=== PATIENT | male | born 1935 | race Caucasian/White ===

== ENCOUNTER 2019-04-06 15:13 | Inpatient (IN) | payer OTHER ==
[~2019-04-06] VITALS: Ht 177.8 cm; Wt 104.6 kg
[~2019-04-06 15:13] MED LIST: AMLO5 PO; AMOX500 PO; ASPI81CH PO; ASPI81EC PO; AVODART; Aspir 8181 MG PO; BLOOD PRESSURE MED; BUDE32NIS; CLAR500 PO; DIAZ5 PO; DOXA4; Daily Multiple1 EACH PO; FIBER LAX625 MG PO; FINA5 PO; Flovent 110 MCG12 GM; HEART BURN MED; HYDR1TAB94 PO; LORA.5 PO; LORA1 PO; LOSHYD PO; MECL25 PO; METF500 PO; MOMENI; NYSTRIT TOP; NYSTRITC TOP; OMEP20ER PO; ONDA4ODT MM; RXOXYACE PO; SENN187 PO
--- NOTE | 2019-04-08 07:07 | NUR ---
Ambulatory in Day Surgery History, Chart, Medications and Allergies reviewed before start of procedure.Patient confirms NPO status and agrees with scheduled surgery. Lungs clear T/O to Auscultation.
--- NOTE | 2019-04-08 13:55 | NUR ---
[id number] NAUSEA PATIENT WITH HISTORY OF VERTIGO WHICH CAUSES NAUSEA. ZOFRAN GIVEN PER REQUEST
--- NOTE | 2019-04-08 17:42 | NUR ---
PATIENT SITTING IN CHAIR, REPORTS CURRENT PAIN LEVEL 2-3 WHICH IS ACCEPTABLE LEVEL. DRESSING CLEAN, DRY AND INTACT. PATIENT DENIES NAUSEA. PATIENT VOIDED POST OP
[2019-04-09 05:06] LABS: BASOPHILS ABSOLUTE AUTO 0.03 K/mm3 (0.00-0.23); BASOPHILS PERCENT AUTO 0 % (0-2); EOSINOPHILS ABSOLUTE AUTO 0.04 K/mm3 (0.00-0.68); EOSINOPHILS PERCENT AUTO 0 % (0-6); Hematocrit 36.6 % (37.0-53.0); Hemoglobin 12.2 g/dL (13.5-17.5); IMMATURE GRAN ABSOLUTE AUTO 0.05 K/mm3 (0.00-0.10); IMMATURE GRAN PERCENT AUTO 0 % (0-1); LYMPHOCYTES ABSOLUTE AUTO 2.34 K/mm3 (0.84-5.20); LYMPHOCYTES PERCENT AUTO 16 % (21-46); MONOCYTES ABSOLUTE AUTO 1.59 K/mm3 (0.16-1.47); MONOCYTES PERCENT AUTO 11 % (4-13); Mean Corpuscular HGB 31.3 pg (26.0-34.0); Mean Corpuscular HGB Conc 33.3 g/dL (31.5-36.5); Mean Corpuscular Volume 94 fL (80-100); Mean Platelet Volume 9.5 fL (9.1-12.4); NEUTROPHILS ABSOLUTE AUTO 10.39 K/mm3 (1.96-9.15); NEUTROPHILS PERCENT AUTO 72 % (41-73); Platelet Count 262 K/mm3 (150-400); RDW Coefficient Variation 14.3 % (11.7-14.2); RDW Standard Deviation 48.7 fL (35.1-46.3); White Blood Cell Count 14.44 K/mm3 (4.00-11.30)
[2019-04-09 05:30] LABS: Magnesium, Blood 2.1 mg/dL (1.6-2.4)
[2019-04-09 05:31] LABS: Anion Gap 7 mmol/L (6-16); Blood Urea Nitrogen 10 mg/dL (8-24); Bun/Creatinine Ratio 13.2 (12.0-20.0); CO2, Blood 30 mmol/L (21-32); Calcium, Blood 8.4 mg/dL (8.5-10.1); Chloride, Blood 104 mmol/L (98-108); Creatinine, Blood 0.76 mg/dL (0.60-1.20); Glomerular Filtration Rate >60 (60-); Glucose, Blood 102 mg/dL (70-99); Potassium, Blood 3.9 mmol/L (3.5-5.5); Sodium, Blood 141 mmol/L (136-145)
--- NOTE | 2019-04-09 05:58 | NUR ---
SUMMARY POD #1 LEFT TKA PT HAS DONE WELL THROUGH THE NIGHT. PAIN MANAGED WITH TYLENOL & TORADOL. VSS. DRSG REMAINS C/D/I. PT IS TOLERATING PO INTAKE. VOIDING WNL. PT HAS AMBULATED IN HALLS X2, 1 ASSIST USING FWW/GAIT BELT, GAIT IS STEADY, NO VERTIGO NOTED. [employer] PACK IN PLACE. CALL LIGHT IN REACH. TM
[2019-04-09] MEDS ORDERED: ACET500 PO (13:33)
[2019-04-09] MEDS ORDERED: ROXICODONE5 MG PO (13:33)
--- NOTE | 2019-04-09 13:50 | NUR ---
DISCHARGE: PT RECENTLY DISCHARGED. PT REPORTS UNDERSTANDING OF DISCHARGE INFORMATION. PT REPORTS HAVING APPR EQUIP AT HOME. PT BEEN EATING AND DRINKING, VOIDING AND PASSING GAS. PT BEEN SEEN BY DR STAUFFER TODAY. PT CLEARED BY THERAPY TO GO HOME. PT REPORTS PAIN TOLERABLE ON PO PAIN MEDICATION. PT REPORTS UNDERSTANDING OF ICE MACHINE. SENT WITH ICE MACHINE, DRESSING SUPPLIES, SCRIPT.
--- NOTE | 2019-04-11 09:04 | NUR ---
04/11/19 0904 Bell Keith VERIFICATIONS: EDIT CHART.
== END 2019-04-09 13:48 | disposition home or self-care (01) | DRG 470 ==
LOC: SURS 04-08 06:54 → PRE IP 04-08 08:30 → SURS 04-08 12:20
PROVIDERS: ADMIT Orthopaedic Surgery
PROC: 0SRB0JA Replacement of Left Hip Joint with Synthetic Substitute, Uncemented, Open Approach (ICD-10-PCS; principal; 2019-04-08 08:30)
DX: M16.12 Unilateral primary osteoarthritis, left hip (principal); I10 Essential (primary) hypertension; E11.9 Type 2 diabetes mellitus without complications; G47.33 Obstructive sleep apnea (adult) (pediatric)
CPT/HCPCS: 36415; 72170; 80048; 82947; 83735; 85025; 88305; 88311; 97110; 97116; 97162; 97530; C1776; J0171; J0690; J0735; J1100; J1885; J2405; J2704; J2795; J3010; J7120

== ENCOUNTER 2021-08-17 21:28 | Emergency (ER) | payer OTHER ==
[~2021-08-17] VITALS: Ht 177.8 cm; Wt 99.8 kg
[~2021-08-17 21:28] MED LIST changes: +ACET500 PO; +ROXICODONE5 MG PO
== END 2021-08-17 23:21 | disposition home or self-care (01) ==
LOC: ER 21:28
DX: I10 Essential (primary) hypertension (principal); E11.9 Type 2 diabetes mellitus without complications; K21.9 Gastro-esophageal reflux disease without esophagitis; Z87.891 Personal history of nicotine dependence; Z79.84 Long term (current) use of oral hypoglycemic drugs; Z88.8 Allergy status to other drugs, medicaments and biological substances; Z79.899 Other long term (current) drug therapy; Z79.82 Long term (current) use of aspirin
CPT/HCPCS: 99283

== ENCOUNTER → 2021-08-20 | Outpatient (CLI) | payer OTHER ==
[2021-08-20 13:44] LABS: BASOPHILS ABSOLUTE AUTO 0.05 K/mm3 (0.00-0.23); BASOPHILS PERCENT AUTO 1 % (0-2); EOSINOPHILS ABSOLUTE AUTO 0.36 K/mm3 (0.00-0.68); EOSINOPHILS PERCENT AUTO 4 % (0-6); Hematocrit 43.4 % (37.0-53.0); Hemoglobin 14.6 g/dL (13.5-17.5); IMMATURE GRAN ABSOLUTE AUTO 0.02 K/mm3 (0.00-0.10); IMMATURE GRAN PERCENT AUTO 0 % (0-1); LYMPHOCYTES ABSOLUTE AUTO 2.57 K/mm3 (0.84-5.20); LYMPHOCYTES PERCENT AUTO 29 % (21-46); MONOCYTES ABSOLUTE AUTO 0.92 K/mm3 (0.16-1.47); MONOCYTES PERCENT AUTO 10 % (4-13); Mean Corpuscular HGB 31.4 pg (26.0-34.0); Mean Corpuscular HGB Conc 33.6 g/dL (31.5-36.5); Mean Corpuscular Volume 93 fL (80-100); Mean Platelet Volume 9.3 fL (9.1-12.4); NEUTROPHILS ABSOLUTE AUTO 5.01 K/mm3 (1.96-9.15); NEUTROPHILS PERCENT AUTO 56 % (41-73); Platelet Count 318 K/mm3 (150-400); RDW Coefficient Variation 14.4 % (11.7-14.2); RDW Standard Deviation 49.3 fL (35.1-46.3); Red Blood Cell Count 4.65 M/mm3 (4.30-5.90); White Blood Cell Count 8.93 K/mm3 (4.00-11.30)
[2021-08-20 14:07] LABS: Alanine Aminotransfer (ALT/SGP 30 U/L (12-78); Albumin, Blood 3.5 g/dL (3.4-5.0); Albumin/Globulin Ratio 1.1 (0.8-1.8); Alk Phos 90 U/L (40-126); Anion Gap 11 mmol/L (6-16); Aspartate Aminotrans (AST/SGOT 24 U/L (12-37); Bilirubin, Total 0.5 mg/dL (0.1-1.0); Blood Urea Nitrogen 10 mg/dL (8-24); Bun/Creatinine Ratio 15.9 (12.0-20.0); CO2, Blood 30 mmol/L (21-32); Calcium, Blood 8.9 mg/dL (8.5-10.1); Chloride, Blood 105 mmol/L (98-108); Creatinine, Blood 0.63 mg/dL (0.60-1.20); Globulin, Blood 3.1 g/dL (2.2-4.0); Glomerular Filtration Rate >60 (60-); Glucose, Blood 99 mg/dL (70-99); Potassium, Blood 3.8 mmol/L (3.5-5.5); Sodium, Blood 146 mmol/L (136-145); Thyroid Stimulating Hormone 1.005 uIU/mL (0.360-4.800); Total Protein, Blood 6.6 g/dL (6.4-8.2)
== END | disposition home or self-care (01) ==
LOC: LAB SHORT 13:40
PROVIDERS: Physician Assistant
DX: R06.00 Dyspnea, unspecified (principal); R00.2 Palpitations; R41.0 Disorientation, unspecified
CPT/HCPCS: 80053; 83880; 84443; 85025

== ENCOUNTER 2024-04-13 06:13 | Day surgery (SDC) | payer OTHER ==
[~2024-04-13] VITALS: Ht 177.8 cm; Wt 99.0 kg
[~2024-04-13 06:13] MED LIST changes: +ATOR20 PO; +Amlodipine Bes2.5 MG PO; +LOSA50 PO; +Lactated Ringer's 1,000 ML ONE
--- NOTE | 2024-04-13 06:23 | NUR ---
04/13/24 0623 Laura Sotelo CHARTING UNDER NURSE LUONG DUE TO NOT HAVING CHARTING ACCESS.
[2024-04-13] MEDS ORDERED: EPINEPhrine HCl 1 MG/ML 1ML Amp ONE (06:37)
[2024-04-13] MEDS ORDERED: Lidocaine 2%-Epineph 1:200000 20 ML SDV ONE (06:37)
[2024-04-13] MEDS ORDERED: Ciprofloxacin 0.3% Opth Soln 2.5 ML BTL ONE ×2 (06:37→11:05)
[2024-04-13] MEDS ORDERED: Triamcinolone Inj Susp 10 MG / ML 5ML Vial ONE (06:37)
[2024-04-13] MEDS ORDERED: NS 50 ML IV ONE (06:45)
[2024-04-13] MEDS ORDERED: Triamcinolone Inj Susp 40 MG / ML 1ML Vial ONE (07:07)
[2024-04-13] MEDS ORDERED: Lactated Ringer's 1,000 ML IV ONE ×3 (07:10→13:33)
[2024-04-13] MEDS ORDERED: XARELTO20 MG (07:26)
[2024-04-13] MEDS ORDERED: METO25ER (07:27)
[2024-04-13] MEDS ORDERED: propofoL 20 ML IV ONE (07:28)
[2024-04-13] MEDS ORDERED: FentaNYL Citrate 50 MCG/ML 2 ML Injection ONE ×3 (07:28→12:30)
[2024-04-13] MEDS ORDERED: SuccINYLCHOLINE Chloride 100 MG/5 ML 5MLSYR ONE (07:30)
[2024-04-13] MEDS ORDERED: Rocuronium Bromide 10 MG/ML 5ML Injection IV ONE (07:30)
[2024-04-13] MEDS ORDERED: Dexamethasone Sod Phos 10 MG/ML 1ML VIAL ONE (08:08)
--- NOTE | 2024-04-13 11:44 | NUR ---
04/13/24 1144 Tarun Pollack PT WOULD NOT VERBALIZE PAIN SCALE IN PACU BUT REPORTED TOLERABLE R EAR PAIN. FLACC 09/02.
--- NOTE | 2024-04-13 13:04 | NUR ---
04/13/24 1304 Tarun Pollack PT REPORTS 8/10 PAIN IN R EAR REFUSES FURTHER IV PAIN MEDICATION. PT REPORTED BEING VERY DIZZY UPON ARRIVING IN SDU AND TRANSFER TO RECLINER. HE SAYS DIZZINESS HAS RESOLVED WHILE SITTING.
[2024-04-13 13:36] VITALS: BP 139/66
== END 2024-04-13 14:17 | disposition home or self-care (01) ==
LOC: ORSCSDS 06:13
DX: H71.91 Unspecified cholesteatoma, right ear (principal); I10 Essential (primary) hypertension; I48.91 Unspecified atrial fibrillation; I49.9 Cardiac arrhythmia, unspecified; Z95.0 Presence of cardiac pacemaker; E11.9 Type 2 diabetes mellitus without complications; H81.10 Benign paroxysmal vertigo, unspecified ear; N40.0 Benign prostatic hyperplasia without lower urinary tract symptoms; G47.33 Obstructive sleep apnea (adult) (pediatric); Z79.01 Long term (current) use of anticoagulants; Z79.84 Long term (current) use of oral hypoglycemic drugs; Z79.899 Other long term (current) drug therapy; Z79.82 Long term (current) use of aspirin; Z87.891 Personal history of nicotine dependence
CPT/HCPCS: 82947; A9270; J0171; J0330; J1100; J2704; J3010; J3301; J7120

== ENCOUNTER 2025-07-19 07:32 | Day surgery (SDC) | payer OTHER ==
[~2025-07-19] VITALS: Ht 177.8 cm; Wt 100.3 kg
[~2025-07-19 07:32] MED LIST changes: -Lactated Ringer's 1,000 ML ONE; +Lidocaine 1%-Epineph 1:200000 30 ML SDV ONE; +METO25ER; +Triamcinolone Inj Susp 40 MG / ML 1ML Vial ONE; +XARELTO20 MG
[2025-07-19] MEDS ORDERED: FentaNYL Citrate 50 MCG/ML 2 ML Injection ONE ×3 (09:24→12:25)
[2025-07-19] MEDS ORDERED: Dexamethasone Sod Phos 10 MG/ML 1ML VIAL ONE (11:38)
[2025-07-19] MEDS ORDERED: Ondansetron HCl 2 MG / ML 2ML Vial ONE (11:38)
--- NOTE | 2025-07-19 13:13 | NUR ---
07/19/25 1313 PAM SMITH PT DRINKING SIPS OF ICE WATER. ADMITS THAT THROAT FEELS SCRATCHY. PAIN 6/10- RIGHT EAR, STINGING PAIN. ENCOURAGING PT TO HAVE SOMETHING TO EAT (APPLE SAUCE) SO I MAY BE ABLE TO GIVE HIM A PAIN PILL.
[2025-07-19 14:15] VITALS: BP 160/82
== END 2025-07-19 14:25 | disposition home or self-care (01) ==
LOC: ORSCSDS 07:32
PROVIDERS: Otolaryngology
PROC: 09W Ear, Nose, Sinus, Revision (ICD-10-PCS; principal; 2025-07-19 09:00)
PROC: 09BB0ZZ Excision of Right Mastoid Sinus, Open Approach (ICD-10-PCS; principal; 2025-07-19 09:00)
DX: H95.01 Recurrent cholesteatoma of postmastoidectomy cavity, right ear (principal); E11.9 Type 2 diabetes mellitus without complications; J44.9 Chronic obstructive pulmonary disease, unspecified; Z99.81 Dependence on supplemental oxygen; Z79.84 Long term (current) use of oral hypoglycemic drugs; Z79.899 Other long term (current) drug therapy; I48.91 Unspecified atrial fibrillation
CPT/HCPCS: 82947; A9270; C1763; J0166; J1100; J2405; J2704; J3010; J3301